=== PATIENT | female | born 1990 | race Caucasian/White ===

== ENCOUNTER 2022-05-30 13:14 | Emergency (ER) | payer OTHER ==
[~2022-05-30] VITALS: Ht 167.6 cm; Wt 144.7 kg
[~2022-05-30 13:14] MED LIST: ACET-1182 PO; PREN-385 PO
[2022-05-30 13:26] VITALS: BP 127/68
--- NOTE | 2022-05-30 13:36 | NUR ---
PT TAKEN TO CT VIA WC
--- NOTE | 2022-05-30 13:51 | NUR ---
ALEXUS URRUTIA AT PT SIDE FOR EVAL
--- NOTE | 2022-05-30 13:54 | NUR ---
31 Y/O FEMALE BIB SELF WITH DAUGHTER C/O RIGHT KNEE PAIN S/P FALL TODAY. STATES THAT SHE "HEARD HER BONES", NO CREPITUS NOTED DURING AMBULATION [facility] PMH: DENIES
--- NOTE | 2022-05-30 14:20 | NUR ---
Patient discharged with v/s stable. Written and verbal after care instructions given and explained. Patient verbalized understanding. Ambulatory with steady gait. All questions addressed prior to discharge. Advised to follow up with PMD.
--- NOTE | 2022-05-30 14:22 | NUR ---
LIZZ WRAP X 1 TO R KNEE. + CMS. CRUTCHES PROVIDED AND PT RETURNED SAFE DEMONSTRATION.
== END 2022-05-30 14:20 | disposition home or self-care (01) ==
LOC: MED 13:14
DX: S83.91XA Sprain of unspecified site of right knee, initial encounter (principal); X58.XXXA Exposure to other specified factors, initial encounter; Y93.89 Activity, other specified; Y92.89 Other specified places as the place of occurrence of the external cause; Y99.8 Other external cause status
CPT/HCPCS: 73562; 99283